=== PATIENT | female | born 1935 | race Hispanic/Latino ===

== ENCOUNTER 2020-03-01 09:35 | Day surgery (SDC) | payer MEDICARE ==
[2020-03-01 11:09] VITALS: BP 140/73
--- NOTE | 2020-03-01 11:39 | NUR ---
PT HER FOR PICC LINE INSERTION. PROCEDURE EXPLAINED TO PT AND HER DAUGHTER MAIRA SELF. DAUGHTER SIGNED CONSENT. LAB WORK DRAWN AT BEDSIDE. PT ENDORSED TO PICC NURSE TADEO
[2020-03-01 12:20] LABS: INR 0.94 (0.85-1.15); PROTHROMBIN TIME 10.2 SEC (9.6-11.6)
--- NOTE | 2020-03-01 14:00 | NUR ---
PICC LINE ATTEMPTED TO RT UPPER ARM, UNABLE TO GET CATHETER PASS SUBCLAVIAN AREA, ABORTED AND STARTED ON LEFT ARM, 5FR DUAL LUMEN, INSERTED TO LEFT ARM WITH SOME DIFFICULTY, CHEST X-RAY DONE .
--- NOTE | 2020-03-01 15:14 | NUR ---
PATIENT DISMISS PER W/C WITH BUILDING PRESSURE WASHER, REPORT GIVEN TOIVETH CHAN LVN
== END 2020-03-01 15:14 | disposition home or self-care (01) ==
LOC: DAH 09:35
PROVIDERS: ATTEND Family Medicine
DX: Z45.2 Encounter for adjustment and management of vascular access device (principal); D72.829 Elevated white blood cell count, unspecified; I70.0 Atherosclerosis of aorta; M47.814 Spondylosis without myelopathy or radiculopathy, thoracic region
CPT/HCPCS: 36415; 36573; 71045; 85049; 85610; A4606; C1894; 36569; 76937